=== PATIENT | male | born 1980 | race Caucasian/White ===

== ENCOUNTER 2021-01-29 17:14 | Emergency (ER) | payer OTHER, SELFPAY ==
--- NOTE | ~2021-01-29 | CT_ITS ---
EXAMINATION: CTA [facility] DATE: 01/29/2021 18:55 INDICATION: Left lower limb pain TECHNIQUE: Computed tomographic angiography (CTA) of the left lower limb from of the hip through the midfoot was performed with 150 mL Omnipaque 350 intravenous contrast. Automated exposure control and iterative reconstruction technique were employed. The dose-length product was 988 mGy-cm. COMPARISON: None. FINDINGS: The arteries of the left lower limb are patent throughout with no evident stenosis and with three-ves madelyn runoff below the ankle. Bones are normal alignment. No fracture. Bilateral sacroiliac joints and the joints throughout the left lower limb are normal. No joint effusions. Small patellar, Achilles an d plantar calcaneal enthesophytes. Soft tissues in the left lower limb are unremarkable. No abnormal masses, abscess or other abnormal fluid collections. Bladder, prostate and visualized portion of the bowels in the pelvis are normal. No pathologically enlarged left inguinal or left pelvic lymphadenopa thy. IMPRESSION: 1. Normal CT angiogram of the left lower limb with three-vessel runoff below the ankle. Reviewed, dictated and finalized at location A. IMPRESSION: 1. Normal CT angiogram of the left lower limb with three-vessel runoff below t he ankle.
[2021-01-29 17:17] VITALS: BP 158/98; PULSE 97; RESP 18; TEMP 37.2; O2SAT 98
--- NOTE | 2021-01-29 17:40 | ED.LOWEXIN ---
HPI - Extremity Injury (Lower) General Chief Complaint: Extremity Injury, Lower <Leander Brandon MD - Last Filed: 01/30/21 08:33> Stated Complaint: lower leg problem <Leander Brandon MD - Last Filed: 01/30/21 08:33> Time Seen by Provider: 01/29/21 17:37 <Leander Brandon MD - Last Filed: 01/30/21 08:33> History of Present Illness HPI Narrative: 40 yo male presents to the ED for leg pain. He reports that he has had severe pain in the left calf and foot since he woke up this morning. He says that it feels that say as when he had a blood clot in the right leg. 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 I believe that he had arterial stenting and fasciotomy done at [facility]. He is a daily cigarette smoker. No chest pain. <Leander Brandon MD - Last Filed: 01/30/21 08:33> Related Data Allergies/Adverse Reactions: Allergies Allergy/AdvReac Type Severity Reaction Status Date / Time No Known Allergies Allergy Unknown Unverified 12/22/14 09:42 <Leander Brandon MD - Last Filed: 01/30/21 08:33> Review of Systems Review of Systems: All systems reviewed & are unremarkable except as noted in HPI and below <Leander Brandon MD - Last Filed: 01/30/21 08:33> Constitutional: Constitutional: Denies chills and Denies fever(s) <Leander Brandon MD - Last Filed: 01/30/21 08:33> Cardiovascular: Cardiovascular: Denies chest pain <Leander Brandon MD - Last Filed: 01/30/21 08:33> Respiratory: Respiratory: Denies dyspnea <Leander Brandon MD - Last Filed: 01/30/21 08:33> Gastrointestinal: Gastrointestinal: Denies nausea <Leander Brandon MD - Last Filed: 01/30/21 08:33> Neurologic: Denies weakness <Leander Brandon MD - Last Filed: 01/30/21 08:33> [facility] Past Medical History Medical History: Medical History (Updated 07/19/21 @ 00:00 by Background Daisaelrobin) Presence of stent in artery <Leander Brandon MD - Last Filed: 01/30/21 08:33> Surgical History Surgical History: Surgical History (Updated 01/29/21 @ 18:24 by Leander Brandon MD) H/O fasciotomy <Leander Brandon MD - Last Filed: 01/30/21 08:33> Social History Social History: Social History (Updated 01/29/21 @ 18:24 by Leander Brandon MD) Smoking status: Current every day smoker Gender identity (if verbalized by the patient): Male <Leander Brandon MD - Last Filed: 01/30/21 08:33> Exam Const: General: no acute distress and alert <Leander Brandon MD - Last Filed: 01/30/21 08:33> Orientation/consciousness: patient oriented x3 <Leander Brandon MD - Last Filed: 01/30/21 08:33> HENMT: Head: normal to inspection <Leander Brandon MD - Last Filed: 01/30/21 08:33> Neck: Neck: normal visual inspection <Leander Brandon MD - Last Filed: 01/30/21 08:33> Resp: Effort & Inspection: normal respiratory effort <Leander Brandon MD - Last Filed: 01/30/21 08:33> Auscultation: clear to auscultation bilaterally <Leander Brandon MD - Last Filed: 01/30/21 08:33> Cardio: Rate: regular rate <Leander Brandon MD - Last Filed: 01/30/21 08:33> Rhythm: regular rhythm <Leander Brandon MD - Last Filed: 01/30/21 08:33> Other: Weak DP on left. Significantly prolonged capillary refill in left foot. Mildly prolonged on right. <Leander Brandon MD - Last Filed: 01/30/21 08:33> Skin: General skin exam: normal color <Leander Brandon MD - Last Filed: 01/30/21 08:33> Wounds: no wounds <Leander Brandon MD - Last Filed: 01/30/21 08:33> Neuro: General: patient oriented x3, moves all extremities and no focal motor deficits <Leander Brandon MD - Last Filed: 01/30/21 08:33> Speech: normal speech <Leander Brandon MD - Last Filed: 01/30/21 08:33> Extrem: Other: Bilateral calfs soft. Left calf and press tender smoke signal. <Leander Brandon MD - Last Filed: 01/30/21 08:33> Course Course
[2021-01-29] MEDS: SODIUM CHLORIDE 0.9% IV 1,000 ML 999 ML IV CONT (18:07)
[2021-01-29 18:13] LABS: Basophils Absolute Auto 0.1 K/mm3 (0.0-0.1); Basophils Percent Auto 0.9 % (0.2-1.2); Eosinophils Absolute Auto 0.2 K/mm3 (0-0.3); Eosinophils Percent Auto 1.8 % (0-4.4); Hematocrit 45.2 % (42.0-52.0); Hemoglobin 15.6 g/dL (14.0-18.0); Immature Granulocyte Absolute 0.02 K/mm3 (0.00-0.031); Immature Granulocyte Percent A 0.2 % (0-0.5); Lymphocytes Absolute Auto 1.44 K/mm3 (0.9-3.2); Mean Corpuscular HGB Conc 34.5 g/dl (32-36); Mean Corpuscular Hemoglobin 30.5 pg (26-34); Mean Corpuscular Volume 88.5 fl (80-100); Mean Platelet Volume 10.3 fl (7.4-10.4); Monocytes Absolute Auto 0.7 K/mm3 (0.1-0.6); Monocytes Percent Auto 8.4 % (2.6-8.5); Neutrophils Absolute Auto 6.1 K/mm3 (1.3-6.7); Neutrophils Percent Auto 71.7 % (45.5-73.1); Platelet Count Result 252 k/mm3 (150-375); Red Blood Count 5.11 M/mm3 (4.6-6.20); Red Cell Distribution Width 14.4 % (11.5-14.5); White Blood Count 8.5 K/mm3 (4.5-10.0)
[2021-01-29 18:24] LABS: Prothrombin Time 12.6 Seconds (11.1-14.7)
[2021-01-29 18:36] LABS: Lactic Acid Reflex 1.8 mmol/L (0.7-2.1)
[2021-01-29 18:37] LABS: Anion Gap 10 mmol/L (8-16); Blood Urea Nitrogen 17 mg/dL (9-20); Calcium 9.6 mg/dL (8.4-10.2); Carbon Dioxide 27 mmol/L (22-30); Chloride 102 mmol/L (98-107); Estimated CRCL calculation 87 ml/min; Estimated Glomerular Filt Rate > 60; Glucose 147 mg/dL (65-110); Potassium 3.6 mmol/L (3.4-5.0); Sodium 139 mmol/L (137-145)
[2021-01-29 19:33] VITALS: BP 147/96; PULSE 86; RESP 16; O2SAT 100
== END 2021-01-29 19:33 | disposition home or self-care (01) ==
PROVIDERS: Emergency Medicine; Emergency Provider Emergency Medicine; PCP Family Medicine
DX: M79.662 Pain in left lower leg (principal); F17.210 Nicotine dependence, cigarettes, uncomplicated; Z95.5 Presence of coronary angioplasty implant and graft
CPT/HCPCS: 36415; 73706; 80048; 83605; 85025; 85610; 85730; 96360; 99284; J7030; Q9967